=== PATIENT | female | born 1990 | race African-American/Black ===

== ENCOUNTER 2022-11-16 11:00 | Emergency (ER) | payer MEDICAID, SELFPAY ==
--- NOTE | ~2022-11-16 | XR_ITS ---
EXAMINATION: XR abdomen/kub 1V DATE: 11/16/2022 17:16 INDICATION: Left kidney stone. TECHNIQUE: A supine view of the abdomen on 2 radiographs was obtained. COMPARISON: CT abdomen and pelvis 11/16/2022 FINDINGS: There are no dilated loops of bowel. There is contrast in the renal collecting system. Ther e is a persistent left-sided contrast nephrogram. There is mild left hydronephrosis and hydroureter. IMPRESSION: 1. Mild left hydronephrosis and hydroureter. Reviewed, dictated and finalized at location A. [employer]
--- NOTE | ~2022-11-16 | CT_ITS ---
EXAMINATION: CT abdomen pelvis w con DATE: 11/16/2022 15:26 INDICATION: Left lower quadrant abdominal pain. Left flank pain. Nausea and vomiting. TECHNIQUE: Computed tomography (CT) of the abdomen and pelvis was performed with 100 mL Omnipaque 350 intravenous contrast. Automated exposure control and iterative reconstruction technique were employe d. The dose-length product was 555.68 mGy-cm. COMPARISON: None. FINDINGS: The visualized portions of the lung bases are clear without pneumonia or pleural effusion. The heart size is normal. No pericardial effusion. The liver, gallbladder, spleen, pancreas, adrenal glands, and right kidney are normal. There is a delayed left-sided contrast nephrogram. There is mild left hydronephrosis and hydroureter. There is a 3 mm stone in distal left ureter. There are no dilat ed loops of bowel. The appendix is normal. There are no pathologically enlarged lymph nodes. There is physiologic fluid in the pelvis. There is thoracolumbar dextrocurvature. IMPRESSION: 1. 3 mm stone in distal left ureter with mild left hydronephrosis and hydroureter. Reviewed, dictated and finalized at location A. LO[employer]ER IMPRESSION: 1. 3 mm stone in distal left ureter with mild left hydronephrosis and hydrouret er.
[2022-11-16 13:12] VITALS: BP 106/70; PULSE 66; RESP 18; TEMP 36.7; O2SAT 97
[2022-11-16 13:28] LABS: Basophils Percent Auto 0.1 % (0.2-1.2); Eosinophils Percent Auto 0.1 % (0-4.4); Hematocrit 36.7 % (37.0-47.0); Hemoglobin 12.2 g/dL (12.0-15.0); Immature Granulocyte Absolute 0.03 K/mm3 (0.00-0.031); Immature Granulocyte Percent A 0.4 % (0-0.5); Lymphocytes Absolute Auto 0.87 K/mm3 (0.9-3.2); Mean Corpuscular HGB Conc 33.2 g/dl (32-36); Mean Corpuscular Hemoglobin 28.2 pg (26-34); Mean Corpuscular Volume 84.8 fl (80-100); Mean Platelet Volume 9.8 fl (7.4-10.4); Monocytes Absolute Auto 0.5 K/mm3 (0.1-0.6); Monocytes Percent Auto 6.2 % (2.6-8.5); Neutrophils Absolute Auto 5.9 K/mm3 (1.3-6.7); Neutrophils Percent Auto 81.2 % (45.5-73.1); Platelet Count Result 244 k/mm3 (150-375); Red Blood Count 4.33 M/mm3 (4.2-5.4); Red Cell Distribution Width 13.6 % (11.5-14.5); White Blood Count 7.2 K/mm3 (4.5-10.0)
[2022-11-16 13:41] LABS: Alanine Aminotransferase 27 U/L (6-35); Albumin Level 4.5 g/dL (3.5-5.1); Alkaline Phosphatase 78 U/L (38-126); Anion Gap 9 mmol/L (8-16); Aspartate Amino Transferase 35 U/L (14-36); Bilirubin,Total 0.4 mg/dL (0.2-1.3); Blood Urea Nitrogen 14 mg/dL (7-17); Carbon Dioxide 23 mmol/L (22-30); Chloride 109 mmol/L (98-107); Estimated CRCL calculation 60 ml/min; Estimated Glomerular Filt Rate > 60; Glucose 139 mg/dL (65-110); Lipase 94 U/L (23-300); Potassium 3.6 mmol/L (3.4-5.0); Sodium 141 mmol/L (137-145)
--- NOTE | 2022-11-16 14:36 | ED.ABDPAIN ---
HPI - Abdominal Pain General Chief Complaint: Abdominal Pain Stated Complaint: left sided abd pain Time Seen by Provider: 11/16/22 14:26 History of Present Illness HPI narrative: Patient is a 32-year-old female here for evaluation of acute left abdominal pain. Patient states she was washing dishes when the pain came on. It is sharp and stabbing in nature and is very severe. She attempted ibuprofen before arrival to the ED but vomited this up. Denies history of previous similar sensation. No diarrhea or constipation. Denies vaginal bleeding, vaginal discharge, chance of as she is on Depo. Related Data Allergies Allergy/AdvReac Type Severity Reaction Status Date / Time No Known Allergies Allergy Verified 11/16/22 14:50 Course Vital Signs Vital signs: Vital Signs Temperature 98.1 F 11/16/22 13:12 Pulse Rate 66 11/16/22 13:12 Respiratory Rate 18 11/16/22 13:12 Blood Pressure 106/70 11/16/22 13:12 Pulse Oximetry 97 11/16/22 13:12 Oxygen Delivery Room Air 11/16/22 13:12 Temperature 98.1 F 11/16/22 13:12 Pulse Rate 66 11/16/22 13:12 Respiratory Rate 18 11/16/22 13:12 Blood Pressure 106/70 11/16/22 13:12 Pulse Oximetry 97 11/16/22 13:12 Oxygen Delivery Room Air 11/16/22 13:12 MDM - Abdominal Pain MDM Narrative Medical decision making narrative: 32-year-old female here for evaluation of left lower quadrant abdominal pain that came on suddenly today. Patient is uncomfortable appearing on exam but nontoxic, vital signs are normal. Basic labs unremarkable. Urine without signs of infection. Abdomen pelvis CT shows evidence of a 3 mm left distal kidney stone causing obstructive uropathy. She was feeling much improved after pain meds and feels better to go home. This is reasonable given that her pain is controlled, she has no vomiting, urine has no signs of infection and her kidney function is normal. We will send her home with pain meds and to follow-up with urology. Lab Data 11/16/22 13:18 11/16/22 13:18 Labs: Lab Results 11/16/22 11/16/22 11/16/22 Range/Units 13:18 13:18 13:18 WBC 7.2 (4.5-10.0) K/mm3 RBC 4.33 (4.2-5.4) M/mm3 Hgb 12.2 (12.0-15.0) g/dL Hct 36.7 L (37.0-47.0) % MCV 84.8 (80-100) fl MCH 28.2 (26-34) pg MCHC 33.2 (32-36) g/dl RDW 13.6 (11.5-14.5) % Plt Count 244 (150-375) k/mm3 MPV 9.8 (7.4-10.4) fl Immature Gran % (Auto) 0.4 (0-0.5) % Neut % (Auto) 81.2 H (45.5-73.1) % Lymph % (Auto) 12.0 L (18.3-44.2) % [place] % (Auto) 6.2 (2.6-8.5) % Eos % (Auto) 0.1 (0-4.4) % Baso % (Auto) 0.1 L (0.2-1.2) % Lymph # (Auto) 0.87 L (0.9-3.2) K/mm3 [place] # (Auto) 0.5 (0.1-0.6) K/mm3 Eos # (Auto) 0.0 (0-0.3) K/mm3 Baso # (Auto) 0.0 (0.0-0.1) K/mm3 Abs Immat Gran (auto) 0.03 (0.00-0.031) K/mm3 Absolute Neuts (auto) 5.9 (1.3-6.7) K/mm3 Absolute Nucleated RBC 0.0 (0.0-0.012) K/mm3 Nucleated RBC % 0.0 (0.0-0.2) % Sodium 141 (137-145) mmol/L Potassium 3.6 (3.4-5.0) mmol/L Chloride 109 H (98-107) mmol/L Carbon Dioxide 23 (22-30) mmol/L Anion Gap 9 (8-16) mmol/L BUN 14 (7-17) mg/dL Creatinine 1.00 (0.7-1.0) mg/dL Estim Creat Clear Calc 60 ml/min Estimated GFR > 60 (59 - ) Glucose 139 H (65-110) mg/dL Calcium 9.0 (8.4-10.2) mg/dL Total Bilirubin 0.4 (0.2-1.3) mg/dL AST 35 (14-36) U/L ALT 27 (6-35) U/L Alkaline Phosphatase 78 (38-126) U/L Total Protein 8.0 (6.3-8.2) g/dL Albumin 4.5 (3.5-5.1) g/dL Lipase 94 (23-300) U/L Beta HCG, Quant < 2.39 mIU/ML Urine Color (Yellow) Urine Appearance (Clear) Urine pH (5.0-9.0) Ur Specific [place] (1.001-1.035) Urine Protein (Negative) mg/dL Urine Glucose (UA) (Negative) mg/dL Urine Ketones (Negative) mg/dL Ur Blood (Man) (Negative) Urine Nitrate (N
[2022-11-16] MEDS: ONDANSETRON INJ 4 MG/2 ML VIAL IV PUSH (14:51)
[2022-11-16] MEDS: SODIUM CHLORIDE 0.9% IV 1,000 ML 999 ML IV CONT (14:51)
[2022-11-16] MEDS: Please add drug allergy info to patient profile. 1 EACH XX (14:56)
[2022-11-16 15:09] LABS: Beta HCG Quantitative < 2.39 mIU/ML
[2022-11-16] MEDS: KETOROLAC 15 MG/ML VIAL (*BKC) IV PUSH (15:52)
[2022-11-16] MEDS: MORPHINE SULFATE (*CRX) 4 MG/ML INJ IV PUSH (16:42)
[2022-11-16 16:45] LABS: Add Urine Microscopic? YES; Appearance Urine Clear (Clear); Bilirubin Urine Negative (Negative); Blood Urine 2+ (Negative); Color Urine Yellow (Yellow); Glucose Urine UA Negative (Negative); Ketones Urine Negative (Negative); Leukocyte Esterase Ur Negative LEU/UL (Negative); Nitrate Urine Negative (Negative); Protein Urine Negative (Negative); Specific Grav Ur <= 1.005 (1.001-1.035); Urobilinogen Urine 0.2 mg/dL (<2.0)
[2022-11-16 17:07] LABS: Mucus Urine Moderate /lpf; Squamous Epithelial Cell Urine Few /hpf (Few); WBC Urine 0-3 /hpf
[2022-11-16] MEDS: HYDROcodone/acetaminophen (*CRX) 5-325 MG TABLET 1 TAB PO (18:15)
== END 2022-11-16 18:25 | disposition home or self-care (01) ==
PROVIDERS: Emergency Medicine; Emergency Provider Physician Assistant
DX: N13.2 Hydronephrosis with renal and ureteral calculous obstruction (principal)
CPT/HCPCS: 36415; 74018; 74177; 80053; 81001; 81025; 83690; 84702; 85025; 96361; 96365; 96375; 99284; A9270; J0131; J1885; J2270; J2405; J7030; Q9967